=== PATIENT | female | born 1970 | race Two or more races ===

== ENCOUNTER 2025-07-10 05:37 | Emergency (ER) | payer OTHER ==
[~2025-07-10] VITALS: Ht 162.6 cm; Wt 82.0 kg
[2025-07-10 06:10] VITALS: PULSE 70; RESP 12; O2SAT 96
[2025-07-10] MEDS: ALPRAZolam 0.25 MG TAB PO ONE (06:21)
[2025-07-10] MEDS: MECLIZINE HCL 25 MG TAB PO ONE (06:21)
[2025-07-10] MEDS: ONDANSETRON ODT 4 MG TAB PO ONE (06:21)
--- NOTE | 2025-07-10 06:22 | ED.PDOC ---
HPI (NEURO) HPI Comments This is a 54 year old female presenting to the ED with chief complaint of dizziness. Patient reports that she had started to experience dizziness since this morning. Patient relays that she feels like the room is spinning around her and the dizziness is worsened with movement. Patient denies any headache, ear ache, fever, chills, or N/V. 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 History Family History Family History: Reviewed,noncontributory to illness Social History Smoker: Non-Smoker Alcohol: Denies ETOH Use Drugs: Denies Drug Use Lives In: Home Constitutional: denies: chills, diaphoresis, fatigue, fever, malaise, sweats, weakness, others EENTM: denies: blurred vision, double vision, ear bleeding, ear discharge, ear drainage, ear pain, ear ringing, eye pain, eye redness, hearing loss, mouth pain, mouth swelling, nasal discharge, nose bleeding, nose congestion, nose pain, photophobia, tearing, throat pain, throat swelling, voice changes, others Respiratory: denies: cough, hemoptysis, orthopnea, SOB at rest, shortness of breath, SOB with excertion, stridor, wheezing, others Cardiovascular: denies: chest pain, dizzy spells, diaphoresis, Dyspnea on exertion, edema, irregular heart beat, left arm pain, lightheadedness, palpitations, PND, syncope, others Gastrointestinal: denies: abdomen distended, abdominal pain, blood streaked bowels, constipated, diarrhea, dysphagia, difficulty swallowing, hematemesis, melena, nausea, poor appetite, poor fluid intake, rectal bleeding, rectal pain, vomiting, others Genitourinary: denies: abnormal vagina bleeding, burning, dyspareunia, dysuria, flank pain, frequency, hematuria, incontinence, pain, , vagina discharge, urgency, others Neurological: reports: dizziness; denies: fainting, headache, left sided numbness, left sided weakness, numbness, paresthesia, pre-existing deficit, righ t sided numbness, right sided weakness, seizure, speech problems, tingling, tremors, weakness, others Musculoskeletal: denies: back pain, gout, joint pain, joint swelling, muscle pain, muscle stiffness, neck pain, others Integumetry: denies: bruises, change in color, change in hair/nails, dryness, laceration, lesions, lumps, rash, wounds, others Allergic/Immunocompromised: denies: Difficulty Healing, Frequent Infections, Hives, Itching, others Hematologic/Lymphatic: denies: anemia, blood clots, easy bleeding, easy bruising, swollen glands, others Endocrine: denies: excessive hunger, excessive sweating, excessive thirst, excessive urination, flushing, intolerance to cold, intolerance to heat, unexplained weight gain, unexplained weight loss, others Psychiatric: denies: anxiety, bipolar disorder, depression, hopeless, panic disorder, schizophrenia, sleepless, suicidal, others All Other Systems: Reviewed and Negative Physical Exam General Appearance: Mild Distress, Normal HEENT: Normal ENT Inspection, Pharynx Normal, TMs Normal Neck: Full Range of Motion, Non-Tender, Normal, Normal Inspection Respiratory: Chest Non-Tender, Lungs Clear, No Accessory Muscle Use, No Respiratory Distress, Normal Breath Sounds Cardiovascular: No Edema, No JVD, No Murmur, No Gallop, Normal Peripheral Pulses, Regular Rate/Rhythm Breast Exam: Deferred Gastrointestinal: No Organomegaly, Non Tender, No Pulsatile Mass, Normal Bowel Sounds, Soft Genitalia: Deferred Pelvic: Deferred Rectal: Deferred Extremities: No calf tenderness, Normal capillary refill, Normal inspection, Normal range of motion, Non-tender, No pedal edema Musculoskeletal : Apperance: Normal Neurologic: Alert, cmm operator II-XII nml as Tested, No Motor Deficits, Normal Affect, Normal Mood, No Sensory Deficits Cerebellar Function: Normal Reflexes: Normal Skin: Dry, Normal Color, Warm Peripheral Pulses: 3+ Radial (R), 3+ Radial (L) Lymphatic: No Adenopathy Was a procedure done? Was a procedure done?: No Differential Diagnosis (SZ) Seizure: Psychogenic Seizure, Closed Head Injury, CVA/TIA X-Ray, Labs, Meds, VS Vital Signs Date Time Temp Pulse Resp B/P (MAP) Pulse Ox O2 Delivery O2 Flow Rate FiO2 07/10/25 07:10 68 07/10/25 06:10 70 12 96 Room Air* 0 21 07/10/25 06:09 98.6 70 12 108/55 (72) 96 98.6 07/10/25 06:01 71 07/10/25 05:37 97.5 72 18 116/72 98 97.5 Lab Test 07/10/25 10:00 07/10/25 07:04 Range/Units Urine Color Yellow Yellow Urine Clarity Clear Clear Urine pH 5.5 5.0-9.0 Urine Specific [place] 1.032 1.001-1.035 Urine Protein Negative Negative Urine Ketones Negative Negative Urine Blood Negative Negative /uL Urine Nitrite Negative Negative Urine Bilirubin Negative Negative Urine Urobilinogen Normal Negative mg/dL Urine Leukocyte Esterase Negative Negative /uL Urine RBC 1 0 - 4 /hpf Urine Microscopic WBC < 1 0-5 /HPF Urine Squamous Epithelial Cells Few <5 /hpf Urine Bacteria None seen None Seen /hpf Urine Yeast (Budding) Occasional None Seen /hpf Urine Glucose 4+ H Normal mg/dL Troponin I High Sensitivity < 3 L </=34 ng/L Current Medications Medications (Trade) Dose Ordered Sig/Mervin Route Start Time Stop Time Status Last Admin Meclizine HCl (Antivert Tablet) 25 mg ONCE ONCE PO 07/10/25 06:00 07/10/25 06:04 DC 07/10/25 06:21 Alprazolam (Xanax Tablet) 0.25 mg ONCE ONCE PO 07/10/25 06:00 07/10/25 06:04 DC 07/10/25 06:21 Ondansetron HCl (Zofran Po) 4 mg ONCE ONCE PO 07/10/25 06:00 07/10/25 06:04 DC 07/10/25 06:21 Patient alert. No sign of distress. Vitals stable. Answering all questions. Ambulating without difficulty. No neurological deficiencies. Pristine physical examination. No sign of TIA. No sign of any abnormalities as stated before from his physical examination. No leg swelling. No chest pain. Was given prescription of meclizine. Explained to the patient. Satisfied with the treatment plan. No acute process. Was told to follow up with her primary care physician. Was told to come back if there is any problem. Time of 1ST Reevaluation: 07:03 Reevaluation 1ST: Improved Time of 2ND Reevaluation: 10:46 Reevaluation 2ND: Improved Patient Education/Counseling: Diagnosis, Treatment Family Education/Counseling: No Family Present Departure 1 Departure Time of Disposition: 10:47 Impression: Primary Impression: Autonomic disorder Disposition: 01 HOME / SELF CARE / HOMELESS Condition: Good e-Prescriptions Meclizine HCl (Meclizine 25) 25 Mg Tab 25 MG PO DAILY for 5 Days, #5 TAB Prov: BRYANT CORDERO MD 07/10/25 Discharged With: Self Critical Care Note Critical Care Time?: No Stability Stability form required: No Heart Score Heart Score: Heart Score Response (Comments) Value History N/A 0 EKG N/A 0 Age N/A 0 Risk Factors N/A 0 Troponin N/A 0 Total 0 I personally scribed for BRYANT CORDERO MD ([email or web address]) on 07/10/25 at 06:22. Electronically submitted by Jose Luis Benjamin ([email or web address]). BRYANT CORDERO MD Jul 10, 2025 06:22
--- NOTE | 2025-07-10 07:32 | ECG ---
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
--- NOTE | 2025-07-10 07:44 | ECG ---
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
[2025-07-10 10:32] LABS: Urine Budding Yeast OCCASIONAL /hpf (None Seen); Urine Protein, UAD Negative (Negative)
[2025-07-10] MEDS ORDERED: MECL1TAB42 PO (10:48)
[2025-07-10 11:17] VITALS: BP 148/89; PULSE 78; RESP 18; TEMP 98.1; O2SAT 97
== END 2025-07-10 11:19 | disposition home or self-care (01) ==
LOC: EDBD 05:37 → ER 05:37
DX: G90.9 Disorder of the autonomic nervous system, unspecified (principal); E11.9 Type 2 diabetes mellitus without complications
CPT/HCPCS: 36415; 81001; 84484; 93005; 99284; J8597; Q0162